=== PATIENT | male | born 1970 | race Caucasian/White ===

== ENCOUNTER → 2024-07-16 | Outpatient (CLI) | payer BC ==
--- NOTE | 2024-07-17 08:34 | MR ---
EXAMINATION TYPE: MR brain wo/w con DATE OF EXAM: 07/16/2024 7:24 PM COMPARISON: None. 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 The patient was then given intravenous contrast and multi planar, T1 fat-saturation images wer e obtained. IV Contrast: 6 mL Gadobutrol FINDINGS: The basurto-white junctions, ventricular system, basal cisterns appear unremarkable. Diffusion-weighted imaging shows no evidence of restricted diffusion to suggest acute/subacute infarct. Intracranial ar terial flow voids are maintained. Midline structures show no abnormality. The susceptibility weighted images do not reveal any evidence for micro-hemorrhage. After administration of gadolinium, no abnor mal enhancement is seen. The bone marrow signal is within normal limits. Paranasal sinuses and mastoid air cells: Mild scattered paranasal sinus disease. Retention cyst measu ring 18 mm in the right maxillary sinus. Visualized orbits: Orbital contents are intact. IMPRESSION: No evidence of intracranial mass, acute/subacute infarct, or abnormal enhancement. [facility], , 07/17/2024 8:32 AM
== END | disposition home or self-care (01) ==
LOC: RADMRIMAIN 18:40
PROVIDERS: ATTEND Internal Medicine
DX: C34.90 Malignant neoplasm of unspecified part of unspecified bronchus or lung (principal)
CPT/HCPCS: 70553; A9585

== ENCOUNTER → 2024-07-25 | Outpatient (CLI) | payer BC ==
--- NOTE | 2024-07-26 10:41 | CA ---
Transthoracic Echo Report Name: Moreno Catalan Age: 54 Gender: M : 1970 Exam Date: 07/25/2024 13:22 Exam Location: [facility] Ht (in): 69 Wt (lb): 135 Ordering Physician: Michelle Dutton MD Attending/Referring Phys: Michelle Dutton MD Plastic Tile Layer Adia Bowie, RDSOLA Procedure CPT: Indications: C34.90 Lung ca Cardiac Hx: Technical Quality: Good Contrast 1: Total Dose (mL): Contrast 2: Total Dose (mL): MEASUREMENTS (Male / Female) Normal Values 2D ECHO LV Diastolic Diameter PLAX 3.1 cm 4.2 - 5.9 / 3.9 - 5.3 cm LV Systolic Diameter PLAX 2.8 cm IVS Diastolic Thickness 0.8 cm 0.6 - 1.0 / 0.6 - 0.9 cm LVPW Diastolic Thickness 1.0 cm 0.6 - 1.0 / 0.6 - 0.9 cm LV Relative Wall Thickness 0.6 RV Internal Dim ED PLAX 2.4 cm LA Systolic Diameter LX 3.1 cm 3.0 - 4.0 / 2.7 - 3.8 cm LV Diastolic Volume MOD BP 55.3 cm??? 67 - 155 / 56 - 104 cm??? LV Systolic Volume MOD BP 26.4 cm??? / 19 - 49 cm??? LV Ejection Fraction MOD BP 52.2 % >= 55 % LV Cardiac Index MOD BP 1799.1 cm???/min???m??? LV Diastolic Volume MOD 4C 51.3 cm??? LV Systolic Volume MOD 4C 18.0 cm??? LV Ejection Fraction MOD 4C 64.9 % LV Cardiac Index MOD 4C 2069.7 cm???/min???m??? LV Diastolic Length 4C 7.0 cm LV Systolic Length 4C 5.7 cm LV Diastolic Volume MOD 2C 55.6 cm??? LV Systolic Volume MOD 2C 32.0 cm??? LV Ejection Fraction MOD 2C 42.4 % LV Cardiac Index MOD 2C 1467.3 cm???/min???m??? LV Diastolic Length 2C 7.6 cm LV Systolic Length 2C 7.1 cm LA Volume 35.9 cm??? / 22 - 52 cm??? LA Volume Index 20.9 cm???/m??? 16 - 28 cm???/m??? M-MODE Aortic Root Diameter MM 3.2 cm LA Systolic Diameter MM 2.2 cm LA Ao Ratio MM 0.7 AV Cusp Separation MM 2.2 cm DOPPLER MV Area PHT 2.8 cm??? Mitral E Point Velocity 86.3 cm/s Mitral A Point Velocity 102.5 cm/s Mitral E to A Ratio 0.8 MV Deceleration Time 267.9 ms TR Peak Velocity 219.1 cm/s TR Peak Gradient 19.2 mmHg FINDINGS Left Ventricle Left ventricular ejection fraction is estimated at 50-55 %. Mildly decreased left ventricular ejection fraction. No obvious regional wall motion abnormalities. Left ventricular cavity size normal. Average global longitudinal strain of the left ventricle with a value of - 20.3 %. Right Ventricle Mild right ventricular dilatation. Right ventricular systolic pressure within normal limits. Right Atrium Normal right atrial size. Left Atrium Normal left atrial size. Mitral Valve Structurally normal mitral valve. Trace mitral regurgitation. No mitral stenosis. Aortic Valve Trileaflet aortic valve. No aortic stenosis. No aortic regurgitation. Tricuspid Valve Structurally normal tricuspid valve. Mild tricuspid regurgitation. No tricuspid stenosis. Pulmonic Valve Structurally normal pulmonic valve. Trace pulmonic regurgitation. No pulmonic stenosis. Pericardium Moderate pericardial effusion, located anteriorly. Small pericardial effusion, located posteriorly. Aorta Normal size aortic root and proximal ascending aorta. CONCLUSIONS Normal biventricular systolic function No significant valvular abnormalities Mild to moderate pericardial effusion was noted No tamponade physiology noted Previewed by: Dr. Horacio Smith MD (Electronically Signed) Final Date: 26 July 2024 10:40
== END | disposition home or self-care (01) ==
LOC: RADECHMAIN 12:59
PROVIDERS: ATTEND Internal Medicine
DX: Z01.818 Encounter for other preprocedural examination (principal); C34.90 Malignant neoplasm of unspecified part of unspecified bronchus or lung; I31.39 Other pericardial effusion (noninflammatory); I07.1 Rheumatic tricuspid insufficiency
CPT/HCPCS: 93306